=== PATIENT | male | born 1980 | race Two or more races ===

== ENCOUNTER 2022-05-08 22:48 | Emergency (ER) | payer SELFPAY ==
[2022-05-09 00:03] LABS: POTASSIUM,K 3.4 mmol/L (3.5-5.1)
== END 2022-05-09 00:29 | disposition home or self-care (01) ==
LOC: MW.ED 22:48
DX: R00.2 Palpitations (principal); F41.0 Panic disorder [episodic paroxysmal anxiety]
CPT/HCPCS: 36415; 71045; 71045-26; 80048; 84484; 85025; 99283; 99285